=== PATIENT | female | born 1940 | race Caucasian/White ===

== ENCOUNTER 2017-10-27 22:52 | Inpatient (IN) ==
[2017-10-27] MEDS ORDERED: *morphine SULFATE 4 MG/ML PERIprocedure ONLY IV.PUSH ONE (23:12)
--- NOTE | 2017-10-27 23:19 | ED ---
HPI General Chief Complaint: Abdominal Pain Stated Complaint: Abd pain/ evac Time Seen by Provider: 10/27/17 23:12 Source: patient History of Present Illness HPI narrative: This 69-year-old woman presents emergency department complaining of lower abdominal pain that been ongoing since this morning. She endorses pain and cramping starting this morning, more in the left lower abdomen but the radiating across the right side up into the epigastrium. Pains been progressively worse. She has had several episodes of nausea and vomiting. Bowel movements have been normal. Pain is been constant, worsening, with no aggravating or. She has a history of complex abdominal surgeries including a bowel abscess 15-20 years ago resulting in colostomy for several weeks, with reversal. She is also had her appendix taken out. She has not had a problem since then with recurrent obstruction, or other surgical complication. She is feeling well and healthy before the symptoms started today. Only other past medical history is hypertension. Related Data Home Medications Medication Instructions Recorded Confirmed Norvasc PO DAILY 10/28/17 furosemide PO DAILY 10/28/17 labetalol PO DAILY 10/28/17 lisinopril PO DAILY 10/28/17 potassium chloride PO DAILY 10/28/17 simvastatin PO HS 10/28/17 10/28/17 Allergies Allergy/AdvReac Type Severity Reaction Status Date / Time ibuprofen AdvReac Intermediate GENERALIZED Verified 10/28/17 00:03 EDEMA Review of Systems ROS Unobtainable All other systems reviewed negative except as stated in HPI [facility] Surgical History Surgical History History of colostomy reversal (Acute) Hx of appendectomy (Acute) Hx of colostomy (Acute) Hx of tonsillectomy (Acute) Previous back surgery (Acute) Social History Social History Substance History: No History of Abuse Second Hand Smoke Exposure: No Smoking Status: Former smoker How Often Do You Have a Drink Containing Alcohol: Never Recent Travel in [facility] within the Last 8 Weeks: No Recent Out of Country Travel within the Last 8 Weeks: No Exam Narrative Exam Narrative: GENERAL: Well-appearing 69-year-old woman, moderate obesity, no acute distress. SKIN: Focused skin assessment warm/dry. HEAD: Atraumatic. Normocephalic. EYES: Pupils equal and round. No scleral icterus. No injection or drainage. ENT: No nasal bleeding or discharge. Mucous membranes pink and moist. NECK: Trachea midline. No JVD. CARDIOVASCULAR: Regular rate and rhythm. No murmur appreciated. RESPIRATORY: No accessory muscle use. Clear to auscultation. Breath sounds equal bilaterally. GASTROINTESTINAL: Abdomen is obese and soft. Mild left lower quadrant tenderness to palpation. No rebound or guarding. MUSCULOSKELETAL: No obvious deformities. No clubbing. No cyanosis. No edema. NEUROLOGICAL: Awake and alert. No obvious cranial nerve deficits. Motor grossly within normal limits. Normal speech. PSYCHIATRIC: Appropriate mood and affect; insight and judgment normal. Course Initial Documented Vital Signs Temperature 98.1 F 10/27/17 23:07 Pulse Rate 64 10/27/17 23:07 Respiratory Rate 18 10/27/17 23:07 Blood Pressure 215/98 H 10/27/17 23:07 Pulse Oximetry 97 10/27/17 23:07 Last Documented Vital Signs Temperature 98.1 F 10/27/17 23:31 Pulse Rate 64 10/27/17 23:31 Respiratory Rate 18 10/27/17 23:07 Blood Pressure 215/98 H 10/27/17 23:31 Pulse Oximetry 95 10/27/17 23:31 Medical Decision Making [facility] Narrative Medical decision making narrative: Is a 69-year-old woman who presents to the emergency department complaining of lower abdominal pain. Mild tenderness. Some vomiting and fullness. Given her history is, some concern for bowel obstruction. Possible diverticulitis. She overall looks well at this point. CT scan suggestive of partial small bowel obstruction. This consistent with her clinical presentation. Had persistent vomiting in the ED and so we placed an NG tube. Patient will be admitted to medicine. Lab Data Result diagrams: 10/27/17 23:40 10/27/17 23:40 Lab Results 10/27/17 10/27/17 Range/Units 23:40 23:40 WBC 12.7 H (4.0-11.0) th/mm3 RBC 5.18 (4.00-5.30) mil/mm3 Hgb 14.6 (11.6-15.3) gm/dL Hct 43.7 (35.0-46.0) % MCV 84.4 (80.0-100.0) fL MCH 28.2 (27.0-34.0) pg MCHC 33.5 (32.0-36.0) % RDW 14.8 (11.6-17.2) % Plt Count 214 (150-450) th/mm3 MPV 9.8 (7.0-11.0) fL Neut % (Auto) 87.6 H (16.0-70.0) % Lymph % (Auto) 6.7 L (9.0-44.0) % [place] % (Auto) 4.6 (0.0-8.0) % Eos % (Auto) 0.9 (0.0-4.0) % Baso % (Auto) 0.2 (0.0-2.0) % Neut # (Auto) 11.1 H (1.8-7.7) th/mm3 Lymph # (Auto) 0.8 L (1.0-4.8) th/mm3 [place] # (Auto) 0.6 (0.0-0.9) th/mm3 Eos # (Auto) 0.1 (0.0-0.4) th/mm3 Baso # (Auto) 0.0 (0.0-0.2) th/mm3 WBC Differential . Differential Comment Auto diff final Sodium 147 H (136-145) meq/L Potassium 3.6 (3.5-5.1) meq/L Chloride 110 H (98-107) meq/L Carbon Dioxide 25.1 (21.0-32.0) meq/L Anion Gap 12 (5-15) meq/L BUN 15 (7-18) mg/dL Creatinine 0.76 (0.50-1.00) mg/dL Estimated GFR 74 L (>89) mL/min Random Glucose 120 H (74-106) mg/dL Calcium 8.4 L (8.5-10.1) mg/dL Total Bilirubin 0.9 (0.2-1.0) mg/dL AST 16 (15-37) U/L ALT 18 (10-53) U/L Alkaline Phosphatase 124 H (45-117) U/L Total Protein 6.8 (6.4-8.2) g/dL Albumin 3.8 (3.4-5.0) g/dL Lipase 73 (73-393) U/L Imaging Data Radiologist's impression: ITS Impressions Abdomen/Pelvis CT 10/28/17 00:00 CONCLUSION: 1. There are mildly dilated loops of proximal small bowel and nondilated distal small bowel. The appearance is nonspecific with differential considerations including partial small bowel obstruction and localized ileus. Recommend follow-up films. Discharge Plan Discharge Disposition Patient Disposition: 30 Still Patient Discharge Condition Condition: Stable Discharge Details Discharge Problem: Small bowel obstruction Physicians Team ED Provider: Paolo Romero Rxs /Orders / Referrals /Forms Prescriptions: No Action lisinopril PO DAILY RF: 0 Norvasc PO DAILY RF: 0 furosemide PO DAILY RF: 0 labetalol PO DAILY RF: 0 potassium chloride PO DAILY RF: 0 simvastatin PO HS RF: 0 Discharge Interventions Interventions: Vital Signs Last Done: 10/27/17 23:31 Status ED Status: Pending Admission
[2017-10-27] MEDS ORDERED: Morphine Inj 4 MG/ML Vial IV.PUSH ONE (23:56)
[2017-10-28 00:07] LABS: Baso % (Auto) 0.2 % (0.0-2.0); Eos # (Auto) 0.1 th/mm3 (0.0-0.4); Eos % (Auto) 0.9 % (0.0-4.0); Hematocrit 43.7 % (35.0-46.0); Hemoglobin 14.6 gm/dL (11.6-15.3); Lymph # (Auto) 0.8 th/mm3 (1.0-4.8); Lymph % (Auto) 6.7 % (9.0-44.0); Mean Corpuscular HGB Conc 33.5 % (32.0-36.0); Mean Corpuscular Hemoglobin 28.2 pg (27.0-34.0); Mean Corpuscular Volume 84.4 fL (80.0-100.0); Mean Platelet Volume 9.8 fL (7.0-11.0); Mono # (Auto) 0.6 th/mm3 (0.0-0.9); Mono % (Auto) 4.6 % (0.0-8.0); Neut # (Auto) 11.1 th/mm3 (1.8-7.7); Neut % (Auto) 87.6 % (16.0-70.0); Platelet Count 214 th/mm3 (150-450); Red Blood Count 5.18 mil/mm3 (4.00-5.30); Red Cell Distribution Width 14.8 % (11.6-17.2); White Blood Count 12.7 th/mm3 (4.0-11.0)
[2017-10-28 00:14] LABS: Alanine Aminotransferase 18 U/L (10-53); Albumin 3.8 g/dL (3.4-5.0); Anion Gap 12 meq/L (5-15); Aspartate Aminotransferase 16 U/L (15-37); Blood Urea Nitrogen 15 mg/dL (7-18); Calcium 8.4 mg/dL (8.5-10.1); Carbon Dioxide 25.1 meq/L (21.0-32.0); Chloride 110 meq/L (98-107); Glomerular Filtration Rate 74 mL/min (>89); Glucose,Random 120 mg/dL (74-106); Lipase 73 U/L (73-393); Potassium 3.6 meq/L (3.5-5.1); Sodium 147 meq/L (136-145)
[2017-10-28 00:17] LABS: Alkaline Phosphatase 124 U/L (45-117); Total Protein 6.8 g/dL (6.4-8.2)
[2017-10-28] MEDS: KCL 20 mEq/D5W/NaCl 0.45% Inj 1,000 ML IV.CONT SCH ×2 (03:47→15:01)
--- NOTE | 2017-10-28 06:09 | P.HPIM ---
History of Present Illness Primary Care Physician: Jaime Huber DO Chief Complaint: nausea, abd pain History of Present Illness: 69-year-old female with a history of diverticulitis status post colectomy with colostomy and reversal many years ago who presents with intermittent sharp nonradiating bilateral lower abdominal pain, nausea without vomiting, decreased appetite. Patient denies any fevers or chills. Says she felt fine prior to beginning of symptoms this morning. Reports bowel movement yesterday. Denies any diarrhea or constipation. - Inpatient Certification If this patient has been admitted as an Inpatient: I certify that the inpatient services were ordered in accordance with Medicare regulations governing the order. 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 - Medical History Medical History: Medical History (Last Reviewed 10/28/17 @ 00:23 by Turner Heath) Bilateral cataracts Diverticulitis Diverticulitis of intestine with abscess Female incontinence High triglycerides Hypertension - Surgical History Surgical History: Surgical History (Last Updated 10/27/17 @ 23:23 by Linda Loomis RN) History of colostomy reversal Hx of appendectomy Hx of colostomy Hx of tonsillectomy Previous back surgery - Family History Family History: Family History (Last Updated 10/28/17 @ 06:02 by Jaime Nicholas MD) Other Adopted - Tobacco History Second Hand Smoke Exposure: No Smoking Status: Former smoker - Alcohol History How Often Do You Have a Drink Containing Alcohol: Never - Substance Use History Substance History: No History of Abuse - Travel History Recent Travel in the [place] Within the Last 8 Weeks: No Recent Travel Out of the Country Within the Last 8 Weeks: No - Immunization History Tetanus Immunization: Unsure Hx Influenza Vaccine This Season: No Medications and Allergies Active Medications: Active Medications Clonidine HCl (Catapres) 0.1 mg PO ONCE ONE Stop: 10/28/17 05:58 Enalaprilat (Vasotec Inj) 1.25 mg IV.PUSH Q6H PRN PRN Reason: SBP>180, DBP>110 Last Admin: 10/28/17 04:27 Dose: 1.25 mg Potassium Chloride/Dextrose/Sod Cl (D5w/1/2ns + Kcl 20 Meq Inj) 1,000 mls @ 100 mls/hr IV.CONT .Q10H ANN Last Admin: 10/28/17 03:47 Dose: 100 mls/hr Labetalol HCl (Trandate) 100 mg PO BID ANN Sodium Chloride (Ns Flush) 2 ml IV.FLUSH PRN PRN PRN Reason: FLUSH AFTER USING IV ACCESS Allergies Allergy/AdvReac Type Severity Reaction Status Date / Time ibuprofen AdvReac Intermediate GENERALIZED Verified 10/28/17 00:03 EDEMA Home Medications Medication Instructions Recorded Confirmed Type Norvasc PO DAILY 10/28/17 History furosemide PO DAILY 10/28/17 History labetalol PO DAILY 10/28/17 History lisinopril PO DAILY 10/28/17 History potassium chloride PO DAILY 10/28/17 History simvastatin PO HS 10/28/17 10/28/17 History Exam Vital signs: Vital Signs 10/27/17 23:07 10/27/17 23:31 Temperature 98.1 F 98.1 F Pulse Rate 64 64 Respiratory Rate 18 Blood Pressure 215/98 H 215/98 H Pulse Oximetry 97 95 Intake & Output 10/27/17 10/27/17 10/28/17 06:59 18:59 06:59 Weight 90.718 kg Narrative: GENERAL: Patient sitting up in bed. Somnolent, wakes up for exam. Oriented 3. SKIN: Warm and dry. HEAD: Atraumatic. Normocephalic. EYES: Pupils equal and round. No scleral icterus. No injection or drainage. ENT: No nasal bleeding or discharge. Mucous membranes pink and moist. NECK: Trachea midline. No JVD. CARDIOVASCULAR: Regular rate and rhythm. RESPIRATORY: No accessory muscle use. Clear to auscultation. Breath sounds equal bilaterally. GASTROINTESTINAL: Abdomen soft, non-tender, nondistended. Hepatic and splenic margins not palpable. Nontender. No rebound or guarding. MUSCULOSKELETAL: Extremities without clubbing, cyanosis, or edema. No obvious deformities. NEUROLOGICAL: Somnolent, wakes up for exam. No obvious cranial nerve deficits. Motor grossly within normal limits. Five out of 5 muscle strength in the arms and legs. Normal speech. PSYCHIATRIC: Appropriate mood and affect; insight and judgment normal. Results - Labs CBC & Chem 7: 10/27/17 23:40 10/27/17 23:40 Labs: Short CBC 10/27/17 Range/Units 23:40 WBC 12.7 H (4.0-11.0) th/mm3 Hgb 14.6 (11.6-15.3) gm/dL Hct 43.7 (35.0-46.0) % Plt Count 214 (150-450) th/mm3 BMP 10/27/17 23:40 Sodium 147 H Potassium 3.6 Chloride 110 H Carbon Dioxide 25.1 BUN 15 Creatinine 0.76 Calcium 8.4 L Liver Function 10/27/17 Range/Units 23:40 Total Bilirubin 0.9 (0.2-1.0) mg/dL AST 16 (15-37) U/L ALT 18 (10-53) U/L Alkaline Phosphatase 124 H (45-117) U/L Albumin 3.8 (3.4-5.0) g/dL - Imaging Impressions Abdomen/Pelvis CT 10/28/17 00:00 CONCLUSION: 1. There are mildly dilated loops of proximal small bowel and nondilated distal small bowel. The appearance is nonspecific with differential considerations including partial small bowel obstruction and localized ileus. Recommend follow-up films. Caprini VTE Risk Assessment Caprini VTE Risk Assessment: Moderate/High Risk (score >= 2) Caprini Risk Assessment Model: Point Value = 1 Point Value = 2 Point Value = 3 Point Value = 5 Age 41-60 Minor surgery BMI > 25 kg/m2 Swollen legs Varicose veins or History of unexplained or recurrent spontaneous Oral contraceptives or hormone replacement Sepsis (< 1 month) Serious lung disease, including pneumonia (< 1 month) Abnormal pulmonary function Acute myocardial infarction Congestive heart failure (< 1 month) History of inflammatory bowel disease Medical patient at bed rest Age 61-74 Arthroscopic surgery Major open surgery (> 45 min) Laparoscopic surgery (> 45 min) Malignancy Confined to bed (> 72 hours) Immobilizing plaster cast Central venous access Age >= 75 History of VTE Family history of VTE Factor V Leiden Prothrombin [id number] Lupus anticoagulant Anticardiolipin antibodies Elevated serum homocysteine Heparin-induced thrombocytopenia Other congenital or acquired thrombophilia Stroke (< 1 month) Elective arthroplasty Hip, pelvis, or leg fracture Acute spinal cord injury (< 1 month) Prophylaxis Regimen: Total Risk Factor Score Risk Level Prophylaxis Regimen 0-1 Low Early ambulation 2 Moderate Order ONE of the following: *Sequential Compression Device (SCD) *Heparin 5000 units SQ BID 3-4 Higher Order ONE of the following medications: *Heparin 5000 units SQ TID *Enoxaparin/Lovenox 40 mg SQ daily (WT < 150 kg, CrCl > 30 mL/min) *Enoxaparin/Lovenox 30 mg SQ daily (WT < 150 kg, CrCl > 10-29 mL/min) *Enoxaparin/Lovenox 30 mg SQ BID (WT < 150 kg, CrCl > 30 mL/min) AND/OR *Sequential Compression Device (SCD) 5 or more Highest Order ONE of the following medications: *Heparin 5000 units SQ TID (Preferred with Epidurals) *Enoxaparin/Lovenox 40 mg SQ daily (WT < 150 kg, CrCl > 30 mL/min) *Enoxaparin/Lovenox 30 mg SQ daily (WT < 150 kg, CrCl > 10-29 mL/min) *Enoxaparin/Lovenox 30 mg SQ BID (WT < 150 kg, CrCl > 30 mL/min) AND *Sequential Compression Device (SCD) Assessment and Plan - Plan //Partial small bowel obstruction = As seen on CT abdomen above abdominal surgery. NG tube placed in ED. N.p.o. Consult general surgery. IV fluids. //Accelerated hypertension = Systolic blood pressures in the 200s. Patient uncertain of med list. Clonidine ordered. As needed Vasotec, //Leukocytosis 12.4 = Likely secondary to stress of nausea and abdominal pain. No abdominal tenderness. No signs of infection on CT abdomen. //Hypernatremia 147 on admission. = One half normal saline ordered. Discussed Condition With: Patient, nurse, ED physician, patient's at bedside.
[2017-10-28] MEDS ORDERED: Promethazine 25 MG Supp RECTAL PRN (06:10)
[2017-10-28 07:16] LABS: Albumin 3.9 g/dL (3.4-5.0); Calcium 8.8 mg/dL (8.5-10.1); Carbon Dioxide 25.6 meq/L (21.0-32.0); Potassium 3.7 meq/L (3.5-5.1)
[2017-10-28 07:19] LABS: Total Protein 7.4 g/dL (6.4-8.2)
[2017-10-28 07:23] LABS: Baso # (Auto) 0.1 th/mm3 (0.0-0.2); Baso % (Auto) 0.2 % (0.0-2.0); Eos % (Auto) 0.1 % (0.0-4.0); Hematocrit 46.3 % (35.0-46.0); Hemoglobin 15.4 gm/dL (11.6-15.3); Lymph # (Auto) 0.3 th/mm3 (1.0-4.8); Lymph % (Auto) 1.5 % (9.0-44.0); Mean Corpuscular HGB Conc 33.3 % (32.0-36.0); Mean Corpuscular Hemoglobin 28.2 pg (27.0-34.0); Mean Corpuscular Volume 84.5 fL (80.0-100.0); Mean Platelet Volume 9.8 fL (7.0-11.0); Mono # (Auto) 1.7 th/mm3 (0.0-0.9); Mono % (Auto) 7.6 % (0.0-8.0); Neut # (Auto) 20.3 th/mm3 (1.8-7.7); Neut % (Auto) 90.6 % (16.0-70.0); Platelet Count 235 th/mm3 (150-450); Red Blood Count 5.48 mil/mm3 (4.00-5.30); Red Cell Distribution Width 14.7 % (11.6-17.2); White Blood Count 22.4 th/mm3 (4.0-11.0)
[2017-10-28] MEDS: Labetalol 100 MG Tablet PO SCH ×2 (08:14→21:00)
--- NOTE | 2017-10-28 08:51 | P.CONGS ---
[facility] Gen Surgery Consult Note Consult date: 10/28/17 Reason for consult: abdominal pain Requesting physician: Jaime Nicholas Narrative: 69-year-old female developed acute onset of diffuse abdominal pain early yesterday morning associated with multiple episodes of emesis and chills. She states that the pain is centered in the left lower abdomen but radiates throughout the entire abdomen. 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 She also had an open appendectomy as a child. She states that the pain has improved slightly since she has been admitted. She does have significant hypertension with a systolic in the 220s currently. Her white blood count was 12,000 yesterday and 22,[address] of the abdomen and pelvis shows dilated loops of small bowel and possible partial small bowel obstruction. 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 - Medical History Medical History: Medical History (Last Reviewed 10/28/17 @ 00:23 by Turner Heath) Bilateral cataracts Diverticulitis Diverticulitis of intestine with abscess Female incontinence High triglycerides Hypertension - Surgical History Surgical History: Surgical History (Last Updated 10/27/17 @ 23:23 by Linda Loomis RN) History of colostomy reversal Hx of appendectomy Hx of colostomy Hx of tonsillectomy Previous back surgery - Family History Family History: Family History (Last Updated 10/28/17 @ 06:02 by Jaime Nicholas MD) Other Adopted - Tobacco History Second Hand Smoke Exposure: No Smoking Status: Former smoker - Alcohol History How Often Do You Have a Drink Containing Alcohol: Never - Substance Use History Substance History: No History of Abuse - Travel History Recent Travel in the [facility] Within the Last 8 Weeks: No Recent Travel Out of the Country Within the Last 8 Weeks: No - Immunization History Tetanus Immunization: Unsure Hx Influenza Vaccine This Season: No Medications and Allergies Active Medications: Active Medications Enalaprilat (Vasotec Inj) 1.25 mg IV.PUSH Q6H PRN PRN Reason: SBP>180, DBP>110 Last Admin: 10/28/17 04:27 Dose: 1.25 mg Potassium Chloride/Dextrose/Sod Cl (D5w/1/2ns + Kcl 20 Meq Inj) 1,000 mls @ 100 mls/hr IV.CONT .Q10H ANN Last Admin: 10/28/17 03:47 Dose: 100 mls/hr Sodium Chloride (Ns Inj) 1,000 mls @ 0 mls/hr IV.SIG BOLUS ONE Stop: 10/28/17 08:38 Labetalol HCl (Trandate) 100 mg PO BID [facility] Last Admin: 10/28/17 08:14 Dose: 100 mg Morphine Sulfate (Morphine Inj) 4 mg IV.PUSH Q2H PRN PRN Reason: PAIN SCALE 6 TO 10 Ondansetron HCl (Zofran Odt) 4 mg PO Q6H PRN PRN Reason: NAUSEA OR VOMITING Ondansetron HCl (Zofran Inj) 4 mg IV.PUSH Q6H PRN PRN Reason: NAUSEA OR VOMITING Promethazine HCl (Phenergan) 25 mg PO Q6H PRN PRN Reason: NAUSEA OR VOMITING Promethazine HCl (Phenergan Supp) 25 mg RECTAL Q6H PRN PRN Reason: NAUSEA OR VOMITING Sodium Chloride (Ns Flush) 2 ml IV.FLUSH PRN PRN PRN Reason: FLUSH AFTER USING IV ACCESS Allergies Allergy/AdvReac Type Severity Reaction Status Date / Time ibuprofen AdvReac Intermediate GENERALIZED Verified 10/28/17 00:03 EDEMA Home Medications Medication Instructions Recorded Confirmed Type Norvasc PO DAILY 10/28/17 History amlodipine [Norvasc] 10 mg PO DAILY 10/28/17 10/28/17 History furosemide PO DAILY 10/28/17 History labetalol 100 mg PO BID 10/28/17 10/28/17 History labetalol PO DAILY 10/28/17 History lisinopril 40 mg PO BID 10/28/17 10/28/17 History lisinopril PO DAILY 10/28/17 History potassium chloride 20 meq PO BID 10/28/17 10/28/17 History potassium chloride PO DAILY 10/28/17 History simvastatin 20 mg PO QPM 10/28/17 10/28/17 History simvastatin PO HS 10/28/17 10/28/17 History Exam Vital signs: Vital Signs 10/27/17 23:07 10/27/17 23:31 10/28/17 03:00 Temperature 98.1 F 98.1 F Pulse Rate 64 64 64 Respiratory Rate 18 23 Blood Pressure 215/98 H 215/98 H 208/92 H Pulse Oximetry 97 95 10/28/17 04:00 10/28/17 05:00 10/28/17 07:13 Temperature Pulse Rate 72 72 64 Respiratory Rate 18 18 18 Blood Pressure 208/91 H 206/86 H Pulse Oximetry 96 10/28/17 08:00 10/28/17 08:29 10/28/17 08:30 Temperature Pulse Rate 69 Respiratory Rate 18 18 Blood Pressure 212/86 H 208/93 H 210/95 H Pulse Oximetry 95 Intake & Output 10/27/17 10/28/17 10/28/17 18:59 06:59 18:59 Output Total 200 / 200 Balance -200 / -200 Weight 90.718 kg Output: Gastric Drainage 200 / 200 Right Nare 200 / 200 Narrative: GENERAL: Awake and alert. Appears uncomfortable. Cooperative. Obese. HEAD: Normocephalic. Atraumatic. EYES: Pupils equal round and reactive to light bilaterally. No scleral icterus. ENT: Moist oral mucosa. NECK: Trachea midline. CHEST: Lungs clear to auscultation bilaterally with no wheezing or rhonchi. No respiratory distress. CARDIOVASCULAR: Regular rate and rhythm. ABDOMEN: Obese. Lower midline scar and left lower abdomen colostomy site scar. Diffuse moderate tenderness to palpation. EXTREMITIES: No cyanosis or edema. SKIN: Warm, dry, nonjaundiced. Results - Labs 10/28/17 06:32 10/28/17 06:32 Abnormal lab results 10/27/17 10/27/17 10/28/17 Range/Units 23:40 23:40 06:32 WBC 12.7 H 22.4 H D (4.0-11.0) th/mm3 RBC 5.48 H (4.00-5.30) mil/mm3 Hgb 15.4 H (11.6-15.3) gm/dL Hct 46.3 H (35.0-46.0) % Neut % (Auto) 87.6 H 90.6 H (16.0-70.0) % Lymph % (Auto) 6.7 L 1.5 L (9.0-44.0) % Neut # (Auto) 11.1 H 20.3 H (1.8-7.7) th/mm3 Lymph # (Auto) 0.8 L 0.3 L (1.0-4.8) th/mm3 [place] # (Auto) 1.7 H (0.0-0.9) th/mm3 Sodium 147 H (136-145) meq/L Chloride 110 H (98-107) meq/L Estimated GFR 74 L (>89) mL/min Random Glucose 120 H (74-106) mg/dL Calcium 8.4 L (8.5-10.1) mg/dL Alkaline Phosphatase 124 H (45-117) U/L 10/28/17 Range/Units 06:32 WBC (4.0-11.0) th/mm3 RBC (4.00-5.30) mil/mm3 Hgb (11.6-15.3) gm/dL Hct (35.0-46.0) % Neut % (Auto) (16.0-70.0) % Lymph % (Auto) (9.0-44.0) % Neut # (Auto) (1.8-7.7) th/mm3 Lymph # (Auto) (1.0-4.8) th/mm3 [place] # (Auto) (0.0-0.9) th/mm3 Sodium (136-145) meq/L Chloride (98-107) meq/L Estimated GFR 75 L (>89) mL/min Random Glucose 222 H D (74-106) mg/dL Calcium (8.5-10.1) mg/dL Alkaline Phosphatase 143 H (45-117) U/L Diabetes panel 10/27/17 10/28/17 Range/Units 23:40 06:32 Sodium 147 H 142 (136-145) meq/L Potassium 3.6 3.7 (3.5-5.1) meq/L Chloride 110 H 107 (98-107) meq/L Carbon Dioxide 25.1 25.6 (21.0-32.0) meq/L BUN 15 14 (7-18) mg/dL Creatinine 0.76 0.75 (0.50-1.00) mg/dL Calcium 8.4 L 8.8 (8.5-10.1) mg/dL AST 16 16 (15-37) U/L ALT 18 21 (10-53) U/L Alkaline Phosphatase 124 H 143 H (45-117) U/L Total Protein 6.8 7.4 D (6.4-8.2) g/dL Albumin 3.8 3.9 (3.4-5.0) g/dL Calcium panel 10/27/17 10/28/17 Range/Units 23:40 06:32 Calcium 8.4 L 8.8 (8.5-10.1) mg/dL Albumin 3.8 3.9 (3.4-5.0) g/dL Pituitary panel 10/27/17 10/28/17 Range/Units 23:40 06:32 Sodium 147 H 142 (136-145) meq/L Potassium 3.6 3.7 (3.5-5.1) meq/L Chloride 110 H 107 (98-107) meq/L Carbon Dioxide 25.1 25.6 (21.0-32.0) meq/L BUN 15 14 (7-18) mg/dL Creatinine 0.76 0.75 (0.50-1.00) mg/dL Calcium 8.4 L 8.8 (8.5-10.1) mg/dL Adrenal panel 10/27/17 10/28/17 Range/Units 23:40 06:32 Sodium 147 H 142 (136-145) meq/L Potassium 3.6 3.7 (3.5-5.1) meq/L Chloride 110 H 107 (98-107) meq/L Carbon Dioxide 25.1 25.6 (21.0-32.0) meq/L BUN 15 14 (7-18) mg/dL Creatinine 0.76 0.75 (0.50-1.00) mg/dL Calcium 8.4 L 8.8 (8.5-10.1) mg/dL Total Bilirubin 0.9 1.0 (0.2-1.0) mg/dL AST 16 16 (15-37) U/L ALT 18 21 (10-53) U/L Alkaline Phosphatase 124 H 143 H (45-117) U/L Total Protein 6.8 7.4 D (6.4-8.2) g/dL Albumin 3.8 3.9 (3.4-5.0) g/dL All other labs normal. - Imaging CT scan - abdomen: report reviewed, image reviewed CT scan - pelvis: report reviewed, image reviewed Assessment and Plan - Assessment (1) Leukocytosis Code(s): D72.829 - Elevated white blood cell count, unspecified Status: Acute (2) Small bowel obstruction Code(s): K56.609 - Unspecified intestinal obstruction, unspecified as to partial versus complete obstruction Status: Acute - Plan The patient has fairly significant abdominal pain and leukocytosis associated with small bowel obstruction. Will monitor closely. Check KUB to confirm NG tube placement. If persistent tenderness and leukocytosis will need to proceed to the operating room in the next couple of days if she does not have resolution of the obstruction.
[2017-10-28] MEDS ORDERED: Morphine Inj 4 MG/ML Vial IV.PUSH PRN (09:15)
[2017-10-28] MEDS ORDERED: Sod Chloride 0.9% Inj 1,000 ML IV.SIG ONE (09:15)
--- NOTE | 2017-10-28 09:49 | XR ---
EXAM DATE: 10/28/2017 9:11 AM EDT AGE/SEX: 77 years / Female INDICATIONS: Diffuse abdominal pain, nausea and vomiting CLINICAL DATA: This is the patient's initial encounter. Patient reports that signs and symptoms have been present for 2 days and indicates a pain score of 6/10. MEDICAL/SURGICAL HISTORY: Hypertension. Diverticulitis. Appendectomy. Colostomy. Hysterectom y. colostomy reversal COMPAR[place]: [facility] [place]ELVIS W CONTRAST, 10/28/2017. . FINDINGS: Air and stool noted throughout the colon. General paucity of bowel gas without dilated loops of jayce l. Contrast is seen in the bladder from recent contrast administration. There is an NGT in the stomac h. Degenerative changes are noted in the lower lumbar spine. CONCLUSION: 1. NGT in the stomach with apparent interval decompression of dilated proximal small bowel loops not ed on CT exam. 2. General paucity of small bowel gas. Electronically signed by: Arjun Tierney MD 10/28/2017 9:47 AM EDT
[2017-10-28 13:10] LABS: Bilirubin,Urine Negative (Negative); Clarity,Urine Clear (Clear); Color,Urine Yellow (Yellw/Straw); Glucose,Urine (UA) 150 mg/dL (Negative); Leukocyte Esterase,Urine Negative (Negative); Mucus,Urine Few /lpf (Occasional); Nitrite,Urine Negative (Negative); Specific Gravity,Urine 1.049 (1.002-1.035); Squamous Epithelial Cell,Urine 1 /hpf (0-5)
[2017-10-29] MEDS: KCL 20 mEq/D5W/NaCl 0.45% Inj 1,000 ML IV.CONT SCH ×3 (01:03→23:04)
[2017-10-29 06:18] LABS: Baso % (Auto) 0.2 % (0.0-2.0); Eos # (Auto) 0.1 th/mm3 (0.0-0.4); Eos % (Auto) 1.2 % (0.0-4.0); Hematocrit 39.9 % (35.0-46.0); Hemoglobin 13.3 gm/dL (11.6-15.3); Lymph # (Auto) 1.9 th/mm3 (1.0-4.8); Mean Corpuscular HGB Conc 33.3 % (32.0-36.0); Mean Corpuscular Hemoglobin 28.4 pg (27.0-34.0); Mean Corpuscular Volume 85.1 fL (80.0-100.0); Mean Platelet Volume 9.4 fL (7.0-11.0); Mono # (Auto) 1.2 th/mm3 (0.0-0.9); Mono % (Auto) 10.3 % (0.0-8.0); Neut # (Auto) 8.3 th/mm3 (1.8-7.7); Neut % (Auto) 72.3 % (16.0-70.0); Platelet Count 217 th/mm3 (150-450); Red Blood Count 4.69 mil/mm3 (4.00-5.30); Red Cell Distribution Width 14.5 % (11.6-17.2); White Blood Count 11.5 th/mm3 (4.0-11.0)
[2017-10-29] MEDS: Labetalol 100 MG Tablet PO SCH ×2 (08:00→23:05)
--- NOTE | 2017-10-29 09:45 | P.PNGS ---
Subjective Interval history: Not requring narcotics overnight. NG about 200cc output. Denies flatus. WBC 11 after starting antibiotics last night. Physical Exam Vital signs: Vital Signs 10/28/17 09:55 10/28/17 10:23 10/28/17 10:36 Temperature Pulse Rate 68 66 64 Respiratory Rate 18 18 18 Blood Pressure 218/93 H 218/93 H 179/77 H Pulse Oximetry 98 95 96 10/28/17 11:56 10/28/17 16:00 10/28/17 20:00 Temperature 97.9 F 98.2 F 98.4 F Pulse Rate 59 L 64 57 L Respiratory Rate 18 18 20 Blood Pressure 161/70 H 167/79 H 190/77 H Pulse Oximetry 97 96 10/29/17 00:00 10/29/17 04:00 10/29/17 06:13 Temperature 98 F 98 F Pulse Rate 55 L 64 Respiratory Rate 20 20 Blood Pressure 161/74 H 188/81 H 182/77 H Pulse Oximetry 97 95 10/29/17 08:00 Temperature 97.8 F Pulse Rate 58 L Respiratory Rate 19 Blood Pressure 169/83 H Pulse Oximetry 97 Intake & Output 10/28/17 10/29/17 10/29/17 18:59 06:59 18:59 Intake Total 1000 / 1000 1661 / 1661 Output Total 800 / 800 250 / 250 Balance 200 / 200 1411 / 1411 Weight 93.6 kg Intake: IV 1000 / 1000 1661 / 1661 D5W/1/2NS + KCL 20 mEq Inj 1, 1000 / 1000 1311 / 1311 000 ML @ 100 mls/hr IV.CONT . Q10H ANN Rx#:[id number] Levaquin 750 mg Premix Inj 150 150 / 150 ML @ 100 mls/hr IV.SIG Q24H ANN Rx#:[id number] Flagyl 500 MG Inj 100 ML @ 100 200 / 200 mls/hr IV.SIG Q6H ANN Rx#: [id number] Oral 0 / 0 Output: Urine 600 / 600 Gastric Drainage 200 / 200 250 / 250 Right Nare 200 / 200 250 / 250 Other: # Voids 2 5 Date of Last Bowel Movement 10/27/17 10/27/17 10/27/17 Weight On Admission 90.718 kg Narrative: No distress, AAO NG bilious output Abd: moderate diffuse ttp, no rebound or guarding Assessment and Plan - Assessment (1) Leukocytosis Code(s): D72.829 - Elevated white blood cell count, unspecified Status: Acute (2) Small bowel obstruction Code(s): K56.609 - Unspecified intestinal obstruction, unspecified as to partial versus complete obstruction Status: Acute - Plan SBO- WBC improved after initiating antibiotics but no resolution of SBO yet. Will order SBFT today. If obstruction does not resolve will likely plan for operation tomorrow.
[2017-10-29] MEDS ORDERED: Lisinopril 20 MG Tablet PO SCH (10:00)
[2017-10-29] MEDS ORDERED: Diatrizoate Meglum/Diatrizoate Sod Liq 120 ML Bottle (for RAD diag) NG/OG ONE (13:05)
[2017-10-29] MEDS ORDERED: hydrALAZINE HCl Inj 20 MG/ML Vial IV.PUSH PRN (15:49)
--- NOTE | 2017-10-29 17:02 | P.PNIM ---
Subjective Interval history: Patient reported feeling nauseous since x-ray abdominal pain is 4 out of 10, WBC dropped to 11,000, surgery added IV antibiotic Physical Exam Vital signs: Vital Signs 10/28/17 20:00 10/29/17 00:00 10/29/17 04:00 Temperature 98.4 F 98 F 98 F Pulse Rate 57 L 55 L 64 Respiratory Rate 20 20 20 Blood Pressure 190/77 H 161/74 H 188/81 H Pulse Oximetry 96 97 95 10/29/17 06:13 10/29/17 08:00 10/29/17 16:00 Temperature 97.8 F 98.2 F Pulse Rate 58 L 64 Respiratory Rate 19 21 Blood Pressure 182/77 H 169/83 H 195/82 H Pulse Oximetry 97 96 Intake & Output 10/28/17 10/29/17 10/29/17 18:59 06:59 18:59 Intake Total 1000 / 1000 1661 / 1661 789 / 789 Output Total 800 / 800 250 / 250 Balance 200 / 200 1411 / 1411 789 / 789 Weight 93.6 kg Intake: IV 1000 / 1000 1661 / 1661 789 / 789 D5W/1/2NS + KCL 20 mEq Inj 1, 1000 / 1000 1311 / 1311 689 / 689 000 ML @ 100 mls/hr IV.CONT . Q10H ANN Rx#:[id number] Levaquin 750 mg Premix Inj 150 150 / 150 ML @ 100 mls/hr IV.SIG Q24H ANN Rx#:[id number] Flagyl 500 MG Inj 100 ML @ 100 200 / 200 100 / 100 mls/hr IV.SIG Q6H ANN Rx#: [id number] Oral 0 / 0 Output: Urine 600 / 600 Gastric Drainage 200 / 200 250 / 250 Right Nare 200 / 200 250 / 250 Other: # Voids 2 5 Date of Last Bowel Movement 10/27/17 10/27/17 10/27/17 Weight On Admission 90.718 kg Narrative: ---GENERAL: This is a well-nourished, well-developed patient, in no apparent distress. CARDIOVASCULAR: RRR, no gallops, or rubs. RESPIRATORY: Fair air entry bilaterally. No W, R, or R GASTROINTESTINAL: Abdomen soft, very tender to palpation, nondistended. Positive bowel sounds MUSCULOSKELETAL: Extremities without clubbing, cyanosis, or edema. Pedal pulses appreciated NEUROLOGICAL: Awake and alert. Moves all extremity. Normal speech.no focal neurological deficit Results - Labs CBC & Chem 7: 10/29/17 05:28 10/28/17 06:32 Laboratory Results - last 24 hr 10/29/17 05:28 WBC 11.5 H RBC 4.69 Hgb 13.3 D Hct 39.9 MCV 85.1 MCH 28.4 MCHC 33.3 RDW 14.5 Plt Count 217 MPV 9.4 Neut % (Auto) 72.3 H Lymph % (Auto) 16.0 [place] % (Auto) 10.3 H Eos % (Auto) 1.2 Baso % (Auto) 0.2 Neut # (Auto) 8.3 H Lymph # (Auto) 1.9 [place] # (Auto) 1.2 H Eos # (Auto) 0.1 Baso # (Auto) 0.0 WBC Differential . Differential Comment Auto diff final Assessment and Plan - Plan Small bowel obstruction Uncontrolled hypertension Leukocytosis Hypernatremia Plan: 10/29: Surgery will do SBFT but if not improving they may proceed with operating NG tube N.p.o. Appreciate general surgery consultation IV fluids Pain management Cipro and Flagyl Patient is on his home p.o. antihypertensive medication I will hold that patient is on Vasotec IV I will add hydralazine IV as needed IV fluids and monitor BMP DVT prophylaxis with SCD
--- NOTE | 2017-10-29 17:42 | FL ---
EXAM DATE: 10/29/2017 5:30 PM EDT AGE/SEX: 77 years / Female INDICATIONS: Abdominal pain and concern for obstruction. CLINICAL DATA: This is the patient's initial encounter. Patient reports that signs and symptoms have been present for 2 days and indicates a pain score of 6/10. MEDICAL/SURGICAL HISTORY: . Hypertension. Diverticulitis. . Appendectomy. Colostomy. Hysterec josse. Colostomy reversal COMPARISON: C, ABDOMEN 1V KUB, 10/28/2017. . FLUORO TIME: 0 IMAGE COUNT: 9 CONTRAST: FINDINGS: Preliminary film is unremarkable. The stomach is grossly unremarkable. Examination of the small bowel demonstrates normal mucosal pattern involving the jejunum and ileum. There is no evidence of mass or obstruction. No intraluminal filling defects are identified. Small bowel transit time is within normal limits. CONCLUSION: Small bowel transit time is less than 4 hours which is within the normal range. There is mild dilatat ion of bowel. NG tip is in the distal stomach. No free air. Electronically signed by: Raffaele Clemente MD 10/29/2017 5:41 PM EDT
[2017-10-29] MEDS ORDERED: Metoprolol Inj 5 MG/5 ML Vial IV.PUSH PRN (18:08)
[2017-10-30] MEDS: KCL 20 mEq/D5W/NaCl 0.45% Inj 1,000 ML IV.CONT SCH ×2 (04:39→17:10)
[2017-10-30 06:32] LABS: Baso % (Auto) 0.4 % (0.0-2.0); Eos # (Auto) 0.2 th/mm3 (0.0-0.4); Eos % (Auto) 1.8 % (0.0-4.0); Hematocrit 40.3 % (35.0-46.0); Hemoglobin 13.3 gm/dL (11.6-15.3); Lymph # (Auto) 1.7 th/mm3 (1.0-4.8); Lymph % (Auto) 19.1 % (9.0-44.0); Mean Corpuscular HGB Conc 33.1 % (32.0-36.0); Mean Corpuscular Hemoglobin 28.2 pg (27.0-34.0); Mean Corpuscular Volume 85.2 fL (80.0-100.0); Mean Platelet Volume 9.6 fL (7.0-11.0); Mono # (Auto) 0.9 th/mm3 (0.0-0.9); Mono % (Auto) 10.1 % (0.0-8.0); Neut % (Auto) 68.6 % (16.0-70.0); Platelet Count 206 th/mm3 (150-450); Red Blood Count 4.73 mil/mm3 (4.00-5.30); Red Cell Distribution Width 14.4 % (11.6-17.2); White Blood Count 8.8 th/mm3 (4.0-11.0)
[2017-10-30 07:03] LABS: Calcium 8.6 mg/dL (8.5-10.1); Carbon Dioxide 26.4 meq/L (21.0-32.0)
[2017-10-30 07:08] LABS: Potassium 3.6 meq/L (3.5-5.1)
[2017-10-30] MEDS: Lisinopril 20 MG Tablet PO SCH ×2 (10:00→20:26)
[2017-10-30] MEDS: amLODIPine 10 MG Tablet PO SCH (10:23)
[2017-10-30] MEDS: Labetalol 100 MG Tablet PO SCH (12:29)
--- NOTE | 2017-10-30 15:50 | P.PNIM ---
Subjective Interval history: Patient sitting on the chair she looks more comfortable today stated she started moving bowel, small bowel follow-through came back unremarkable However per discussion with the nurse patient desaturates whenever trying to wean down oxygen, I will order stat chest x-ray and d-dimer will proceed with CTA to rule out PE accordingly Physical Exam Vital signs: Vital Signs 10/29/17 16:00 10/29/17 17:05 10/29/17 18:19 Temperature 98.2 F 98.2 F Pulse Rate 64 67 Respiratory Rate 21 20 18 Blood Pressure 195/82 H 178/74 H Pulse Oximetry 96 95 10/29/17 20:00 10/30/17 00:00 10/30/17 01:57 Temperature 98.1 F 97.8 F Pulse Rate 57 L 56 L Respiratory Rate 20 20 Blood Pressure 196/82 H 185/77 H 169/71 H Pulse Oximetry 95 97 10/30/17 04:00 10/30/17 08:00 10/30/17 12:00 Temperature 97.3 F L 98.3 F 97.4 F L Pulse Rate 64 58 L 62 Respiratory Rate 20 24 22 Blood Pressure 179/72 H 173/72 H 171/73 H Pulse Oximetry 94 L 94 L 97 Intake & Output 10/29/17 10/30/17 10/30/17 18:59 06:59 18:59 Intake Total 809 / 809 2300 / 2300 100 / 100 Output Total 250 / 250 Balance 559 / 559 2300 / 2300 100 / 100 Intake: IV 789 / 789 2300 / 2300 100 / 100 D5W/1/2NS + KCL 20 mEq Inj 1, 689 / 689 2000 / 2000 000 ML @ 100 mls/hr IV.CONT . Q10H ANN Rx#:[id number] Flagyl 500 MG Inj 100 ML @ 100 100 / 100 300 / 300 100 / 100 mls/hr IV.SIG Q6H ANN Rx#: [id number] Oral 20 / 20 Output: Gastric Drainage 250 / 250 Right Nare 250 / 250 Other: # Voids 2 2 Date of Last Bowel Movement 10/27/17 10/29/17 10/30/17 # Bowel Movements 1 Narrative: ---GENERAL: This is a well-nourished, well-developed patient, in no apparent distress. CARDIOVASCULAR: RRR, no gallops, or rubs. RESPIRATORY: Fair air entry bilaterally. No W, R, or R GASTROINTESTINAL: Abdomen soft, nontender nondistended today. Positive bowel sounds MUSCULOSKELETAL: Extremities without clubbing, cyanosis, or edema. Pedal pulses appreciated NEUROLOGICAL: Awake and alert. Moves all extremity. Normal speech.no focal neurological deficit Results - Labs CBC & Chem 7: 10/30/17 05:04 10/30/17 05:04 Laboratory Results - last 24 hr 10/30/17 10/30/17 05:04 05:04 WBC 8.8 RBC 4.73 Hgb 13.3 Hct 40.3 MCV 85.2 MCH 28.2 MCHC 33.1 RDW 14.4 Plt Count 206 MPV 9.6 Neut % (Auto) 68.6 Lymph % (Auto) 19.1 [place] % (Auto) 10.1 H Eos % (Auto) 1.8 Baso % (Auto) 0.4 Neut # (Auto) 6.0 Lymph # (Auto) 1.7 [place] # (Auto) 0.9 Eos # (Auto) 0.2 Baso # (Auto) 0.0 WBC Differential . Differential Comment Auto diff final Sodium 145 Potassium 3.6 Chloride 108 H Carbon Dioxide 26.4 Anion Gap 11 BUN 11 Creatinine 0.76 Estimated GFR 74 L Random Glucose 96 D Calcium 8.6 - Imaging Impressions Small Bowel X-Ray 10/29/17 00:00 CONCLUSION: Small bowel transit time is less than 4 hours which is within the normal range. There is mild dilatation of bowel. NG tip is in the distal stomach. No free air. Assessment and Plan - Plan Small bowel obstruction Uncontrolled hypertension Leukocytosis Hypernatremia Plan: 10/29: Surgery will do SBFT but if not improving they may proceed with operating 10/30:small bowel follow-through came back unremarkable, patient started moving bowels she feels better in her abdomen However per discussion with the nurse patient desaturates whenever trying to wean down oxygen, I will order stat chest x-ray and d-dimer will proceed with CTA to rule out PE accordingly NG tube clamped to be removed per surgery Liquid diet and advance per surgery Appreciate general surgery consultation IV fluids Pain management Cipro and Flagyl Patient is on his home p.o. antihypertensive medication I will hold that patient is on Vasotec IV I will add hydralazine IV as needed IV fluids and monitor BMP DVT prophylaxis with SCD
--- NOTE | 2017-10-30 16:16 | XR ---
EXAM DATE: 10/30/2017 4:04 PM EDT AGE/SEX: 77 years / Female INDICATIONS: Shortness of breath, hypoxia. CLINICAL DATA: This is the patient's initial encounter. Patient reports that signs and symptoms have been present for 1 day and indicates a pain score of 0/10. MEDICAL/SURGICAL HISTORY: Hypertension. None. COMPARISON: No prior exams available for comparison. FINDINGS: PA and lateral views of the chest demonstrate the lungs to be symmetrically aerated without evidence of mass, infiltrate or effusion. The cardiomediastinal contours are unremarkable. Osseous structures are intact. There is an NG tube in stomach. CONCLUSION: No acute intrathoracic disease. Electronically signed by: James Mulligan MD 10/30/2017 4:15 PM EDT
--- NOTE | 2017-10-30 21:34 | CT ---
EXAM DATE: 10/30/2017 9:27 PM EDT AGE/SEX: 77 years / Female INDICATIONS: Shortness of breath. CLINICAL DATA: This is the patient's initial encounter. Patient reports that signs and symptoms have been present for 1 day and indicates a pain score of 0/10. MEDICAL/SURGICAL HISTORY: Hypertension. Diverticulitis. Appendectomy. Cholecystectomy. RADIATION DOSE: 10.79 CTDI (mGy) COMPARISON: No prior exams available for comparison. TECHNIQUE: Multiple contiguous axial images were obtained through the chest without contrast. Image s were obtained in suspended respiration using multiple row detector helical technique. Using automa shefali exposure control and adjustment of the mA and/or kV according to patient size, radiation dose was kept as low as reasonably achievable to obtain optimal diagnostic quality images. DICOM format imag e data is available electronically for review and comparison. FINDINGS: Lungs: There is mild atelectasis or infiltrate in the posterior medial right lower lobe. Tiny lung b ase nodules. Mediastinum: 2.5 cm low density mass in the right lobe of the thyroid with some eccentric calcificat ion. Atherosclerotic vascular calcifications, including within the coronaries. No evidence of mediast inal lymphadenopathy. Pleurae: No evidence of focal thickening or pleural effusion. Axillae: Unremarkable. Bony Structures: Unremarkable. Miscellaneous: The examination was extended to include the upper abdomen, and both adrenal glands ar e normal in size and configuration. CONCLUSION: 1. Mild infiltrate in the right lung base. 2. Tiny basilar lung nodules which can be followed. Electronically signed by: Chencho Jeffries MD 10/30/2017 9:33 PM EDT
[2017-10-31] MEDS ORDERED: Enoxaparin Inj 100 MG/ML Syringe SQ ONE (01:03)
[2017-10-31] MEDS: levoFLOXacin 750 MG Tablet PO SCH ×2 (01:20→21:01)
[2017-10-31] MEDS: KCL 20 mEq/D5W/NaCl 0.45% Inj 1,000 ML IV.CONT SCH ×3 (01:42→20:03)
[2017-10-31] MEDS: metroNIDAZOLE 500 MG Tablet PO SCH ×3 (06:21→17:46)
[2017-10-31] MEDS: amLODIPine 10 MG Tablet PO SCH (09:33)
[2017-10-31] MEDS: Lisinopril 20 MG Tablet PO SCH ×3 (09:33→21:01)
--- NOTE | 2017-10-31 09:55 | P.PNGS ---
Subjective Interval history: She is improving. Tolerated fulls this am. Has had multiple liquid BMs. Pain is resolved. Physical Exam Vital signs: Vital Signs 10/30/17 12:00 10/30/17 16:00 10/30/17 20:00 Temperature 97.4 F L 98.1 F 98 F Pulse Rate 62 68 68 Respiratory Rate 22 21 20 Blood Pressure 171/73 H 195/79 H 191/81 H Pulse Oximetry 97 93 L 93 L 10/31/17 00:00 10/31/17 04:00 10/31/17 08:00 Temperature 98 F 98.3 F 97.9 F Pulse Rate 66 65 58 L Respiratory Rate 20 20 20 Blood Pressure 178/74 H 152/69 H 151/68 H Pulse Oximetry 95 94 L 99 Intake & Output 10/30/17 10/31/17 10/31/17 18:59 06:59 18:59 Intake Total 1979 380 / 380 Balance 1979 380 / 380 Weight 95.6 kg Intake: IV 1100 / 1100 D5W/1/2NS + KCL 20 mEq Inj 1, 1000 / 1000 000 ML @ 100 mls/hr IV.CONT . Q10H ANN Rx#:[id number] Flagyl 500 MG Inj 100 ML @ 100 100 / 100 mls/hr IV.SIG Q6H ANN Rx#: [id number] Oral 880 / 880 380 / 380 Other: # Voids 3 Date of Last Bowel Movement 10/30/17 10/30/17 # Bowel Movements 3 2 Narrative: No distress SOft, nontender, nondistended Assessment and Plan - Assessment (1) Leukocytosis Code(s): D72.829 - Elevated white blood cell count, unspecified Status: Acute (2) Small bowel obstruction Code(s): K56.609 - Unspecified intestinal obstruction, unspecified as to partial versus complete obstruction Status: Acute - Plan SBO resolving. Start soft diet. If she tolerates lunch without problem she is safe for discharge from my standpoint. Does not need to continue antibiotics. F/ u with me as needed and she has my card. Recommend she avoid large amts of high fiber foods.
--- NOTE | 2017-10-31 10:43 | US ---
EXAM DATE: 10/31/2017 10:34 AM EDT AGE/SEX: 77 years / Female INDICATIONS: Bilateral arm swelling. CLINICAL DATA: This is the patient's initial encounter. Patient reports that signs and symptoms have been present for 4 - 6 days and indicates a pain score of 1/10. MEDICAL/SURGICAL HISTORY: Hypertension. Diverticulitis. Urinary incontinence. High triglyceride s. Appendectomy. Tonsillectomy. Bilateral cataract surgery. Colostomy reversal. Back surgery. COMPARISON: No prior exams available for comparison. FINDINGS: Right Upper Extremity: The vessels are compressible and augmentation response is documented. No fill ing defects are seen. The flow is phasic with respiration. Left Upper Extremity: The vessels are compressible and augmentation response is documented. No filli ng defects are seen. The flow is phasic with respiration. Other: None. CONCLUSION: The study is negative for bilateral upper extremity deep venous thrombosis. Electronically signed by: Otis Pantoja MD 10/31/2017 10:41 AM EDT
--- NOTE | 2017-10-31 11:24 | P.PN ---
Physical Exam Vital signs: Vital Signs 10/30/17 12:00 10/30/17 16:00 10/30/17 20:00 Temperature 97.4 F L 98.1 F 98 F Pulse Rate 62 68 68 Respiratory Rate 22 21 20 Blood Pressure 171/73 H 195/79 H 191/81 H Pulse Oximetry 97 93 L 93 L 10/31/17 00:00 10/31/17 04:00 10/31/17 08:00 Temperature 98 F 98.3 F 97.9 F Pulse Rate 66 65 58 L Respiratory Rate 20 20 20 Blood Pressure 178/74 H 152/69 H 151/68 H Pulse Oximetry 95 94 L 99 Intake & Output 10/30/17 10/31/17 10/31/17 18:59 06:59 18:59 Intake Total 1979 380 / 380 Balance 1979 380 / 380 Weight 95.6 kg Intake: IV 1100 / 1100 D5W/1/2NS + KCL 20 mEq Inj 1, 1000 / 1000 000 ML @ 100 mls/hr IV.CONT . Q10H ANN Rx#:[id number] Flagyl 500 MG Inj 100 ML @ 100 100 / 100 mls/hr IV.SIG Q6H ANN Rx#: [id number] Oral 880 / 880 380 / 380 Other: # Voids 3 Date of Last Bowel Movement 10/30/17 10/30/17 # Bowel Movements 3 2 Narrative: Subjective Interval history: In the chair feel a little improved, able to eat lunch. No n/v/. Passed gas and has diarrhea. Ordered CTA, reviewed and no PE , however multiple nodules noted and warrants follow up CT as OP, ordered on prescription paper as OP follow up. Started on gentle IVF as patient received IV contrast. Poss DC tomorrow Physical Exam GENERAL: This is a well-nourished, well-developed patient, in no apparent distress. CARDIOVASCULAR: RRR, no gallops, or rubs. RESPIRATORY: Fair air entry bilaterally. No W, R, or R GASTROINTESTINAL: Abdomen soft, nontender nondistended today. Positive bowel sounds MUSCULOSKELETAL: Extremities without clubbing, cyanosis, or edema. Pedal pulses appreciated NEUROLOGICAL: Awake and alert. Moves all extremity. Normal speech.no focal neurological deficit Impressions Small Bowel X-Ray 10/29/17 00:00 CONCLUSION: Small bowel transit time is less than 4 hours which is within the normal range. There is mild dilatation of bowel. NG tip is in the distal stomach. No free air. Chest CT 10/30/17 00:00 CONCLUSION: 1. Mild infiltrate in the right lung base. 2. Tiny basilar lung nodules which can be followed. Chest X-Ray 10/30/17 00:00 CONCLUSION: No acute intrathoracic disease. Chest CTA 10/31/17 00:00 CONCLUSION: 1. No CT evidence for pulmonary artery embolism. 2. 8 x 6 mm nodule in the right middle lobe. Recommend follow-up CT examination in 6-12 months per 2017 Fleischner criteria. 3. Multiple sub-4 mm nodules in the lung bases. Routine follow-up of sub-6 mm nodules are not recommended per 2017 Fleischner criteria. However, these nodules can also be reevaluated on follow-up CT performed for the right middle lobe nodule. 4. Redemonstration of 2.1 cm right thyroid lobe nodule. 5. Mild bibasilar atelectasis, improved on the right from yesterday's exam. Venous Doppler Study 10/31/17 00:00 CONCLUSION: The study is negative for bilateral upper extremity deep venous thrombosis. Assessment and Plan Small bowel obstruction, resolving. Uncontrolled hypertension Leukocytosis Hypernatremia Plan: 10/31 F/u CTA to r/o PE. Patient with elevated Ddimer and high risk of PE. Doppler US LE reviewed and no DVT. Start gentle IVF as will receive contrast. Ordered CTA, reviewed and no PE , however multiple nodules noted and warrants follow up CT as OP, ordered on prescription paper as OP follow up. Started on gentle IVF as patient received IV contrast. Patient to follow up as OP with pulm and CT with contrast in 6-12 months as OP. 10/30:small bowel follow-through came back unremarkable, patient started moving bowels she feels better in her abdomen However per discussion with the nurse patient desaturates whenever trying to wean down oxygen, I will order stat chest x-ray and d-dimer will proceed with CTA to rule out PE accordingly 10/29: Surgery will do SBFT but if not improving they may proceed with operating NG tube clamped to be removed per surgery Liquid diet and advance per surgery Appreciate general surgery consultation IV fluids Pain management Cipro and Flagyl Patient is on his home p.o. antihypertensive medication I will hold that patient is on Vasotec IV I will add hydralazine IV as needed IV fluids and monitor BMP DVT prophylaxis with SCD DC likely tomorrow. Results - Labs CBC & Chem 7: 10/30/17 05:04 10/30/17 05:04 Laboratory Results - last 24 hr 10/30/17 17:11 D-Dimer Quant (PE/DVT) 2.10 H - Imaging Impressions Chest CT 10/30/17 00:00 CONCLUSION: 1. Mild infiltrate in the right lung base. 2. Tiny basilar lung nodules which can be followed. Chest X-Ray 10/30/17 00:00 CONCLUSION: No acute intrathoracic disease. Venous Doppler Study 10/31/17 00:00 CONCLUSION: The study is negative for bilateral upper extremity deep venous thrombosis.
--- NOTE | 2017-10-31 13:47 | CT ---
EXAM DATE: 10/31/2017 1:34 PM EDT AGE/SEX: 77 years / Female INDICATIONS: Shortness of breath. CLINICAL DATA: This is the patient's initial encounter. Patient reports that signs and symptoms have been present for 2 days and indicates a pain score of 0/10. MEDICAL/SURGICAL HISTORY: Diverticulitis. Hypertension. Appendectomy. Colostomy. RADIATION DOSE: 12.54 CTDI (mGy) [place] [facility] [place]30/2017. . TECHNIQUE: Volumetric scanning was performed using a multi-row detector CT scanner during bolus infu sue of 73 ml Omnipaque 350 (iohexol) nonionic water-soluble contrast as a single exam dose. The mihir a was post processed with a variety of visualization algorithms including full volume maximum intensi ty projection and sliding thin slab reformation. Using automated exposure control and adjustment of the mA and/or kV according to patient size, radiation dose was kept as low as reasonably achievable t o obtain optimal diagnostic quality images. DICOM format image data is available electronically for review and comparison. FINDINGS: Pulmonary Arteries: No filling defects are seen in the pulmonary arteries through the segmental vess els. The main pulmonary artery is normal in diameter. Lung: Mild groundglass opacities in the lower lobes bilaterally likely reflecting volume loss. This has improved in the right lower lung zone since previous exam. 8 x 6 mm nodule in the right middle lo be. Redemonstration of sub-4 mm nodules in the lung bases. Pleura: No effusion, significant pleural thickening or pneumothorax. Mediastinum: Heart is unremarkable without pericardial effusion.No evidence of mediastinal or hilar adenopathy. Osseous Structures: No abnormal focal lytic or blastic bony lesions. Other: Redemonstration of 2.1 cm low-density nodule in the right thyroid lobe. There is upper abdome n is unremarkable. CONCLUSION: 1. No CT evidence for pulmonary artery embolism. 2. 8 x 6 mm nodule in the right middle lobe. Recommend follow-up CT examination in 6-12 months per 2 017 Fleischner criteria. 3. Multiple sub-4 mm nodules in the lung bases. Routine follow-up of sub-6 mm nodules are not recomm ended per 2017 Fleischner criteria. However, these nodules can also be reevaluated on follow-up CT pe rformed for the right middle lobe nodule. 4. Redemonstration of 2.1 cm right thyroid lobe nodule. 5. Mild bibasilar atelectasis, improved on the right from yesterday's exam. Electronically signed by: Arjun Tierney MD 10/31/2017 1:46 PM EDT
[2017-10-31] MEDS: Sod Chloride 0.9% Inj 1,000 ML IV.CONT SCH ×2 (14:19→14:31)
[2017-11-01] MEDS: metroNIDAZOLE 500 MG Tablet PO SCH ×2 (03:37→06:50)
[2017-11-01] MEDS: Sod Chloride 0.9% Inj 1,000 ML IV.CONT SCH (03:40)
--- NOTE | 2017-11-01 08:17 | P.DS ---
Date of admission: 10/28/17 02:49 Primary care physician: Jaime Huber DO Brief History from admission: 69-year-old female with a history of diverticulitis status post colectomy with colostomy and reversal many years ago who presents with intermittent sharp nonradiating bilateral lower abdominal pain, nausea without vomiting, decreased appetite. Patient denies any fevers or chills. Says she felt fine prior to beginning of symptoms this morning. Reports bowel movement yesterday. Denies any diarrhea or constipation. DS: Diagnosis - Discharge Diagnosis (1) Small bowel obstruction Status: Acute (2) Leukocytosis Status: Acute DS: Summary Hospital Course: Clinical update at discharge: In the chair improved significantly ambulated without problems. Had 2 forming BMs and passing gas. Tolerates food. Physical Exam GENERAL: This is a well-nourished, well-developed patient, in no apparent distress. CARDIOVASCULAR: RRR, no gallops, or rubs. RESPIRATORY: Fair air entry bilaterally. No W, R, or R GASTROINTESTINAL: Abdomen soft, nontender nondistended today. Positive bowel sounds MUSCULOSKELETAL: Extremities without clubbing, cyanosis, or edema. Pedal pulses appreciated NEUROLOGICAL: Awake and alert. Moves all extremity. Normal speech.no focal neurological deficit Impressions Small Bowel X-Ray 10/29/17 00:00 CONCLUSION: Small bowel transit time is less than 4 hours which is within the normal range. There is mild dilatation of bowel. NG tip is in the distal stomach. No free air. Chest CT 10/30/17 00:00 CONCLUSION: 1. Mild infiltrate in the right lung base. 2. Tiny basilar lung nodules which can be followed. Chest X-Ray 10/30/17 00:00 CONCLUSION: No acute intrathoracic disease. Chest CTA 10/31/17 00:00 CONCLUSION: 1. No CT evidence for pulmonary artery embolism. 2. 8 x 6 mm nodule in the right middle lobe. Recommend follow-up CT examination in 6-12 months per 2017 Fleischner criteria. 3. Multiple sub-4 mm nodules in the lung bases. Routine follow-up of sub-6 mm nodules are not recommended per 2017 Fleischner criteria. However, these nodules can also be reevaluated on follow-up CT performed for the right middle lobe nodule. 4. Redemonstration of 2.1 cm right thyroid lobe nodule. 5. Mild bibasilar atelectasis, improved on the right from yesterday's exam. Venous Doppler Study 10/31/17 00:00 CONCLUSION: The study is negative for bilateral upper extremity deep venous thrombosis. Small bowel obstruction. Resolved Uncontrolled hypertension Leukocytosis. Resolved no need for abx at DC per surgeon Hypernatremia Plan: 10/31 F/u CTA to r/o PE. Patient with elevated Ddimer and high risk of PE. Doppler US LE reviewed and no DVT. Start gentle IVF as will receive contrast. Ordered CTA, reviewed and no PE , however multiple nodules noted and warrants follow up CT as OP, ordered on prescription paper as OP follow up. Started on gentle IVF as patient received IV contrast. Patient to follow up as OP with pulm and CT with contrast in 6-12 months as OP. 10/30:small bowel follow-through came back unremarkable, patient started moving bowels she feels better in her abdomen However per discussion with the nurse patient desaturates whenever trying to wean down oxygen, I will order stat chest x-ray and d-dimer will proceed with CTA to rule out PE accordingly 10/29: Surgery will do SBFT but if not improving they may proceed with operating NG tube clamped to be removed per surgery Liquid diet and advance per surgery Appreciate general surgery consultation IV fluids Pain management Cipro and Flagyl Patient is on his home p.o. antihypertensive medication I will hold that patient is on Vasotec IV I will add hydralazine IV as needed Received IV fluids Tolerates food and fluids. DVT prophylaxis with SCD Patient improved significantly. Cleared by surgeon for discharge. No need of antibiotics at discharge per surgeon. Patient discharged home in stable condition to follow-up with PCP and consultants as outpatient. - Time Spent with Patient Total time spent providing and/or coordinating discharge services: Greater than 30 minutes - Quality: VTE Deep Vein Thrombosis/Pulmonary Embolism Present on Admission: No Exam Vital signs: Vital Signs 10/31/17 12:00 10/31/17 16:00 10/31/17 20:00 Temperature 97.4 F L 97.5 F L 98.4 F Pulse Rate 64 72 74 Respiratory Rate 18 20 20 Blood Pressure 139/61 154/69 H 167/73 H Pulse Oximetry 98 98 94 L 11/01/17 00:00 11/01/17 04:00 Temperature 98.3 F 98.2 F Pulse Rate 77 68 Respiratory Rate 20 20 Blood Pressure 177/73 H 179/79 H Pulse Oximetry 93 L 98 Intake & Output 10/31/17 11/01/17 11/01/17 18:59 06:59 18:59 Intake Total 1080 / 1080 1720 / 1720 Balance 1080 / 1080 1720 / 1720 Weight 95.7 kg Intake: IV 1000 / 1000 NS Inj 1,000 ML @ 84 mls/hr IV. 1000 / 1000 CONT .[id number] ANN Rx#:[id number] Oral 1080 / 1080 720 / 720 Other: # Voids 4 3 Date of Last Bowel Movement 10/31/17 # Bowel Movements 1 Results Procedures completed during hospitalization: no procedures - Impressions ITS Impressions Abdomen X-Ray 10/28/17 00:00 CONCLUSION: 1. NGT in the stomach with apparent interval decompression of dilated proximal small bowel loops noted on CT exam. 2. General paucity of small bowel gas. Abdomen/Pelvis CT 10/28/17 00:00 CONCLUSION: 1. There are mildly dilated loops of proximal small bowel and nondilated distal small bowel. The appearance is nonspecific with differential considerations including partial small bowel obstruction and localized ileus. Recommend follow-up films. Small Bowel X-Ray 10/29/17 00:00 CONCLUSION: Small bowel transit time is less than 4 hours which is within the normal range. There is mild dilatation of bowel. NG tip is in the distal stomach. No free air. Chest CT 10/30/17 00:00 CONCLUSION: 1. Mild infiltrate in the right lung base. 2. Tiny basilar lung nodules which can be followed. Chest X-Ray 10/30/17 00:00 CONCLUSION: No acute intrathoracic disease. Chest CTA 10/31/17 00:00 CONCLUSION: 1. No CT evidence for pulmonary artery embolism. 2. 8 x 6 mm nodule in the right middle lobe. Recommend follow-up CT examination in 6-12 months per 2017 Fleischner criteria. 3. Multiple sub-4 mm nodules in the lung bases. Routine follow-up of sub-6 mm nodules are not recommended per 2017 Fleischner criteria. However, these nodules can also be reevaluated on follow-up CT performed for the right middle lobe nodule. 4. Redemonstration of 2.1 cm right thyroid lobe nodule. 5. Mild bibasilar atelectasis, improved on the right from yesterday's exam. Venous Doppler Study 10/31/17 00:00 CONCLUSION: The study is negative for bilateral upper extremity deep venous thrombosis. Discharge Plan - Discharge Disposition Patient Disposition: 01 Discharge Home - Discharge Condition Condition: Stable - Discharge Order Discharge Orders: Discharge Order (Routine); Ordered 11/01/17 Ordered By: Liza Jones - Discharge Details Anticipated Discharge Date: 11/01/17 - Physicians Team Primary Care Provider: Jaime Huber Attending Provider: Liza Jones Other Providers: Johnathan Arreola MD
[2017-11-01] MEDS: KCL 20 mEq/D5W/NaCl 0.45% Inj 1,000 ML IV.CONT SCH (08:42)
[2017-11-01] MEDS: amLODIPine 10 MG Tablet PO SCH (08:42)
[2017-11-01] MEDS: Lisinopril 20 MG Tablet PO SCH (08:42)
== END 2017-11-01 11:01 | disposition home or self-care (01) ==
LOC: NEPC 22:52 → NEDA 10-28 02:49 → N03 10-28 10:54
PROVIDERS: ADMIT Hospitalist; ATTEND Hospitalist